=== PATIENT | female | born 1980 | race Caucasian/White ===

== ENCOUNTER 2017-05-29 19:17 | Emergency (ER) | payer BC, MEDICARE ==
[2017-05-29 19:24] VITALS: BP 130/76
--- NOTE | 2017-05-29 20:50 | ER Document Report ---
ED ENT - General Chief Complaint: Sore Throat Stated Complaint: SORE THROAT sinus pressure Time Seen by Provider: 05/29/17 19:56 Mode of Arrival: Ambulatory Information source: Patient TRAVEL OUTSIDE OF THE [place] IN LAST 30 DAYS: No - HPI Patient complains to provider of: Throat problem Notes: Patient is here with complaints of nasal congestion and sore throat. She states that she has had nasal congestion and sore throat since yesterday. She denies any fever. She denies any difficulty breathing or swallowing. She is concerned because she is going to be flying in the next few days and once a medication to help with her congestion. She denies any significant cough. No abdominal pain. No nausea, vomiting, diarrhea. No difficulty breathing or swallowing. No numbness, tingling, weakness. She denies any other significant complaints. - Related Data Allergies/Adverse Reactions: No Known Allergies Allergy (Verified 05/29/17 19:18) Past Medical History - Social History Smoking Status: Never Smoker Family History: CAD, Hyperlipidemia, Hypertension Patient has suicidal ideation: No Patient has homicidal ideation: No - Past Medical History Cardiac Medical History: Reports: Hx Hypertension - pulmonary Endocrine Medical History: Reports: Hx Hypothyroidism Renal/ Medical History: Denies: Hx Peritoneal Dialysis Musculoskeltal Medical History: Reports Hx Musculoskeletal Deformity, Reports Hx Musculoskeletal Trauma Past Surgical History: Reports: Hx Thyroid Surgery, Hx Tubal Ligation - Immunizations Immunizations up to date: Yes Hx Diphtheria, Pertussis, Tetanus Vaccination: Yes Review of Systems - Review of Systems -: Yes All other systems reviewed and negative Physical Exam - Vital signs Vitals: Temp Pulse Resp BP Pulse Ox 98.0 F 77 18 130/76 H 95 05/29/17 19:22 05/29/17 19:22 05/29/17 19:22 05/29/17 19:22 05/29/17 19:22 - Notes Notes: GENERAL: alert, cooperative, nontoxic, no distress. HEAD: normocephalic, atraumatic EYES: conjunctiva pink without discharge, no external redness or swelling. EARS: no external swelling, no external redness, no mastoid redness, swelling, tenderness. Ear canals are clear without swelling or drainage. TMs pearly [place] , no redness, no bulging, normal landmarks, no perforation. NOSE: atraumatic, no external swelling. clear rhinorrhea noted. MOUTH/THROAT: mucous membranes moist and pink, posterior pharynx without erythema, swelling, exudate. No trismus or drooling. NECK: soft, supple, full range of motion, no meningismus. CHEST: no distress, lungs clear and equal throughout. No wheezing, rales, rhonchi. CARDIAC: regular rate and rhythm, no murmur, normal capillary refill, normal pulses. No peripheral edema noted. BACK: full range of motion, no CVA tenderness. EXTREMITIES: full range of motion of all extremities. No redness, no swelling. NEURO: alert and oriented A&O3, no focal deficits, full range of motion of all extremities. PYSCH: appropriate mood, affect. Patient is cooperative. SKIN: pink, warm, dry, no rash. Course - Re-evaluation Re-evalutation: 05/29/17 20:49 The patient is nontoxic appearing with stable vitals. She is here with complaints of nasal congestion and sore throat that started yesterday. No cough , no fever. Her exam is completely benign aside from some nasal congestion. Throat exam is benign. Rapid strep is negative. Patient is likely having sore throat secondary to postnasal drip. Postnasal drip could be secondary to allergies versus viral URI. Patient will be instructed to take over-the- counter antihistamine medications. She is already taken Mucinex. I will discharge her home with Flonase. Follow-up if not better in 10 days, sooner for worsening symptoms, high fever, persistent vomiting, difficulty breathing or swallowing, or for any further concerns. The patient is noted to have elevated blood pressure during today's emergency department visit. The patient was informed of this finding. The patient was instructed that this may be related to pre-hypertension and requires further evaluation with a primary care provider. The patient has no hypertensive symptoms at this time. The patient's emergency department workup and current diagnosis were explained to the patient and or family. Follow-up instructions were provided. Medications if prescribed were discussed. Instructions for when to return to the emergency department including specific worrisome symptoms were discussed with the patient and/or family. - Vital Signs Vital signs: Temp Pulse Resp BP Pulse Ox 98.0 F 77 18 130/76 H 95 05/29/17 19:22 05/29/17 19:22 05/29/17 19:22 05/29/17 19:22 05/29/17 19:22 Discharge - Discharge Clinical Impression: Sore throat, Post-nasal drip Condition: Stable Disposition: HOME, SELF-CARE Instructions: Sore Throat ([facility]) Additional Instructions: Take medications as prescribed. Continue taking [id number] antihistamines as well as Mucinex. Tylenol and Motrin as needed for pain. Drink plenty of fluids. Follow-up if not better in 10 days, sooner for worsening symptoms, high fever, persistent vomiting, difficulty breathing or swallowing, or for any further concerns. Your blood pressure was elevated during today's visit. Have this rechecked with your doctor. Prescriptions: Fluticasone Propionate [Flonase Nasal [place] 50 Mcg/[place] 16 gm] 1 spray NASL Q12 #1 inhaler Forms: Elevated Blood Pressure, Smoking Cessation Education Referrals: [facility] [Provider Group] - Follow up as needed
== END 2017-05-29 21:00 | disposition home or self-care (01) ==
LOC: ER 19:17
DX: J02.9 Acute pharyngitis, unspecified (principal); R09.82 Postnasal drip
CPT/HCPCS: 87070; 87077; 87880; 99283